=== PATIENT | female | born 1930 | race Caucasian/White ===

== ENCOUNTER 2018-05-13 17:53 | Emergency (ER) | payer OTHER ==
[~2018-05-13] VITALS: Ht 147.3 cm; Wt 61.2 kg
[~2018-05-13 17:53] MED LIST: BENZ100A PO; CARB200 PO; Constulose10 GM/15 M PO; LEVSOD137 PO; LOSHYD100 PO; NASACORT10.8 ML
== END 2018-05-13 20:00 | disposition home or self-care (01) ==
LOC: ER 17:53
DX: N64.52 Nipple discharge (principal); E03.9 Hypothyroidism, unspecified; I10 Essential (primary) hypertension; Z79.899 Other long term (current) drug therapy
CPT/HCPCS: 99283-25

== ENCOUNTER 2020-10-04 19:36 | Inpatient (IN) | payer OTHER ==
[~2020-10-04] VITALS: Ht 144.8 cm; Wt 61.2 kg
[2020-10-04 20:18] LABS: BASOPHILS ABSOLUTE AUTO 0.01 K/mm3 (0.00-0.23); BASOPHILS PERCENT AUTO 0 % (0-2); EOSINOPHILS PERCENT AUTO 0 % (0-6); Hematocrit 42.3 % (33.0-51.0); Hemoglobin 13.9 g/dL (11.5-16.0); IMMATURE GRAN ABSOLUTE AUTO 0.05 K/mm3 (0.00-0.10); IMMATURE GRAN PERCENT AUTO 0 % (0-1); LYMPHOCYTES ABSOLUTE AUTO 0.41 K/mm3 (0.84-5.20); LYMPHOCYTES PERCENT AUTO 3 % (21-46); MONOCYTES ABSOLUTE AUTO 0.32 K/mm3 (0.16-1.47); MONOCYTES PERCENT AUTO 3 % (4-13); Mean Corpuscular HGB 29.1 pg (26.0-34.0); Mean Corpuscular HGB Conc 32.9 g/dL (31.5-36.5); Mean Corpuscular Volume 89 fL (80-100); NEUTROPHILS ABSOLUTE AUTO 11.21 K/mm3 (1.96-9.15); NEUTROPHILS PERCENT AUTO 93 % (41-73); RDW Coefficient Variation 12.5 % (11.7-14.2); Red Blood Cell Count 4.78 M/mm3 (3.80-5.20)
[2020-10-04 20:19] LABS: Mean Platelet Volume 10.2 fL (9.1-12.4); Platelet Count 175 K/mm3 (150-400)
[2020-10-04 20:25] LABS: Alanine Aminotransfer (ALT/SGP 81 U/L (12-78); Albumin, Blood 4.1 g/dL (3.4-5.0); Albumin/Globulin Ratio 1.1 (0.8-1.8); Alk Phos 123 U/L (50-136); Anion Gap 6 mmol/L (6-16); Aspartate Aminotrans (AST/SGOT 57 U/L (12-37); Bilirubin, Total 0.8 mg/dL (0.1-1.0); Blood Urea Nitrogen 21 mg/dL (8-24); Bun/Creatinine Ratio 28.1 (12.0-20.0); CO2, Blood 29 mmol/L (21-32); Calcium, Blood 9.8 mg/dL (8.5-10.1); Chloride, Blood 103 mmol/L (98-108); Creatinine, Blood 0.75 mg/dL (0.40-1.00); Globulin, Blood 3.6 g/dL (2.2-4.0); Glomerular Filtration Rate >60 (60-); Glucose, Blood 192 mg/dL (70-99); Potassium, Blood 4.1 mmol/L (3.5-5.5); Sodium, Blood 138 mmol/L (136-145); Total Protein, Blood 7.7 g/dL (6.4-8.2)
[2020-10-04 20:54] LABS: Source, Urine Clean Catch
[2020-10-04 20:57] LABS: Appearance, Urine Clear (Clear); Bilirubin, Urine Neg (Neg); Blood, Urine 1+ (Neg); Color, Urine Yellow (P-Yellow); Glucose Qualitative, Urine 2+ (Neg); Ketones, Urine Neg (Neg); Leukocyte Esterase, Urine Neg (Neg); Nitrite, Urine Neg (Neg); Protein, Urine 2+ (Neg); Urobilinogen, Urine NORM (Normal)
[2020-10-04 21:12] LABS: Amorphous Mod (0-Heavy); Bacteria Not Seen /hpf; Red Blood Cells, Urine 0-2 /hpf (0-2); Squamous Epithelial Cells Not Seen /hpf (Few); White Blood Cells, Urine Not Seen /hpf (0-5)
[2020-10-04] MEDS ORDERED: LOSARTAN POTAS100 M1 PO (21:54)
[2020-10-04] MEDS ORDERED: HYDROCHLOROTH12.5 MG PO (21:54)
--- NOTE | 2020-10-05 00:45 | NUR ---
ADMISSION NOTE RECEIVED HAND OFF FROM Elo PERSAUD RN USING SBAR. TRANSPORTED TO ROOM 230 VIA STRETCHER. TRANSFERED TO BED WITH FULL STAFF ASSISSTANCE, TOLERATED WELL. LYING IN SEMI FOWLERS WITH EYES OPEN. AAO X4, ASHBY, FAC. ORIENTED TO ROOM, CALL SYSTEM, AND POC, VOICES UNDERSTANDING. STATES SHE HAD FALL TODAY AND HAD RIGHT SIDED PAIN SINCE. DENIES HITTING HER HEAD ON ANYTHING OR LOC. ABDOMEN TENDER WITH MILD SWELLING NOTED. REPORTS RUQ TENDERNESS, DENIES PAIN IN RLQ. BOWEL TONES NOTED IN ALL QUADS. RIGHT AC 18G SL PIV IS PATENT, FLUSHING WITH EASE, IVF AND ABX STARTED PER MD ORDERS. SCD'S APPLIED TO BLE, TOLERATING WELL. STATED SHE HAS CHRONIC BACK PAIN, GIVEN HEATING PAD FOR COMFORT. PT IS NPO, GIVEN ORAL CARE SUPPLIES FOR COMFORT. DENIES PAIN, DISCOMFORT, OR FURTHER NEEDS. SAFETY MEASURES IN PLACE. ADMISSION ASSESSMENT IN PROGRESS. WILL CONTINUE TO MONITOR.
[2020-10-05 04:19] LABS: BASOPHILS ABSOLUTE AUTO 0.02 K/mm3 (0.00-0.23); BASOPHILS PERCENT AUTO 0 % (0-2); EOSINOPHILS PERCENT AUTO 0 % (0-6); Hematocrit 38.2 % (33.0-51.0); Hemoglobin 12.4 g/dL (11.5-16.0); IMMATURE GRAN ABSOLUTE AUTO 0.04 K/mm3 (0.00-0.10); IMMATURE GRAN PERCENT AUTO 0 % (0-1); LYMPHOCYTES ABSOLUTE AUTO 0.75 K/mm3 (0.84-5.20); LYMPHOCYTES PERCENT AUTO 6 % (21-46); MONOCYTES ABSOLUTE AUTO 0.98 K/mm3 (0.16-1.47); MONOCYTES PERCENT AUTO 8 % (4-13); Mean Corpuscular HGB 28.8 pg (26.0-34.0); Mean Corpuscular HGB Conc 32.5 g/dL (31.5-36.5); Mean Corpuscular Volume 89 fL (80-100); Mean Platelet Volume 9.5 fL (9.1-12.4); NEUTROPHILS ABSOLUTE AUTO 10.28 K/mm3 (1.96-9.15); NEUTROPHILS PERCENT AUTO 85 % (41-73); Platelet Count 161 K/mm3 (150-400); RDW Coefficient Variation 12.6 % (11.7-14.2); RDW Standard Deviation 41.6 fL (35.1-46.3); Red Blood Cell Count 4.31 M/mm3 (3.80-5.20); White Blood Cell Count 12.07 K/mm3 (4.00-11.30)
[2020-10-05 04:38] LABS: Alanine Aminotransfer (ALT/SGP 95 U/L (12-78); Albumin, Blood 3.6 g/dL (3.4-5.0); Albumin/Globulin Ratio 1.2 (0.8-1.8); Alk Phos 107 U/L (50-136); Anion Gap 5 mmol/L (6-16); Aspartate Aminotrans (AST/SGOT 78 U/L (12-37); Bilirubin, Total 1.3 mg/dL (0.1-1.0); Blood Urea Nitrogen 19 mg/dL (8-24); Bun/Creatinine Ratio 28.5 (12.0-20.0); CO2, Blood 28 mmol/L (21-32); Calcium, Blood 9.6 mg/dL (8.5-10.1); Chloride, Blood 105 mmol/L (98-108); Creatinine, Blood 0.67 mg/dL (0.40-1.00); Globulin, Blood 2.9 g/dL (2.2-4.0); Glomerular Filtration Rate >60 (60-); Glucose, Blood 136 mg/dL (70-99); Potassium, Blood 3.7 mmol/L (3.5-5.5); Sodium, Blood 138 mmol/L (136-145); Total Protein, Blood 6.5 g/dL (6.4-8.2)
--- NOTE | 2020-10-05 05:57 | NUR ---
SHIFT SUMMARY LYING IN SUPINE PER PT PREFERENCE D/T CHRONIC BACK PAIN FROM SCOLIOSIS. HAS BEEN COOPERATIVE WITH CARE. MEDICATED FOR PAIN X1 THIS SHIFT PER MD ORDERS. NPO FOR POSSIBLE SURGERY TODAY. ABX INFUSED PER MD ORDERS. ENCOURAGED TO T/C/DB FOR COMFORT AND PREVENTION, VOICES UNDERSTANDING. SAFETY MEAURES IN PLACE. WILL CONTINUE TO MONITOR UNTIL HAND OFF TO ONCOMING SHIFT USING SBAR.
--- NOTE | 2020-10-05 12:39 | NUR ---
PT BACK TO ROOM FROM IMAGING. PT'S DAUGHTER, KAYE CALLED AND GIVEN AN UPDATE ON HER MOM'S PLAN OF CARE. AWAITING RESULTS OF MRI AT THIS TIME. CONTINUING TO MONITOR PT'S STATUS
--- NOTE | 2020-10-05 18:30 | NUR ---
SUMMARY: NO ACUTE CHANGE TODAY. A/O, VSS. PT MEDICATED PER EMAR FOR PAIN, PT COMPLAINS OF CHRONIC BACK/NECK PAIN MORE THAN ABD PAIN. PT HAS DENIED N/V. INDEP IN ROOM AND UP TO CHAIR FOR MOST OF THE DAY. PER DR. PITT PLAN IS FOR SURGERY TOMORROW, PT NPO AT 0000. WILL CTM AND REPORT TO NOC RN
[2020-10-06 04:37] LABS: BASOPHILS ABSOLUTE AUTO 0.02 K/mm3 (0.00-0.23); BASOPHILS PERCENT AUTO 0 % (0-2); EOSINOPHILS PERCENT AUTO 0 % (0-6); Hemoglobin 12.3 g/dL (11.5-16.0); IMMATURE GRAN ABSOLUTE AUTO 0.05 K/mm3 (0.00-0.10); IMMATURE GRAN PERCENT AUTO 0 % (0-1); LYMPHOCYTES ABSOLUTE AUTO 0.67 K/mm3 (0.84-5.20); LYMPHOCYTES PERCENT AUTO 5 % (21-46); MONOCYTES ABSOLUTE AUTO 1.05 K/mm3 (0.16-1.47); MONOCYTES PERCENT AUTO 8 % (4-13); Mean Corpuscular HGB 29.4 pg (26.0-34.0); Mean Corpuscular HGB Conc 32.4 g/dL (31.5-36.5); Mean Corpuscular Volume 91 fL (80-100); Mean Platelet Volume 9.9 fL (9.1-12.4); NEUTROPHILS ABSOLUTE AUTO 10.86 K/mm3 (1.96-9.15); NEUTROPHILS PERCENT AUTO 86 % (41-73); Platelet Count 143 K/mm3 (150-400); RDW Coefficient Variation 12.8 % (11.7-14.2); RDW Standard Deviation 42.7 fL (35.1-46.3); Red Blood Cell Count 4.19 M/mm3 (3.80-5.20); White Blood Cell Count 12.65 K/mm3 (4.00-11.30)
[2020-10-06 05:03] LABS: Alanine Aminotransfer (ALT/SGP 113 U/L (12-78); Albumin, Blood 3.2 g/dL (3.4-5.0); Albumin/Globulin Ratio 1.1 (0.8-1.8); Alk Phos 96 U/L (50-136); Anion Gap 6 mmol/L (6-16); Aspartate Aminotrans (AST/SGOT 87 U/L (12-37); Bilirubin, Total 2.4 mg/dL (0.1-1.0); Blood Urea Nitrogen 21 mg/dL (8-24); Bun/Creatinine Ratio 25.5 (12.0-20.0); CO2, Blood 26 mmol/L (21-32); Calcium, Blood 9.5 mg/dL (8.5-10.1); Chloride, Blood 111 mmol/L (98-108); Creatinine, Blood 0.83 mg/dL (0.40-1.00); Globulin, Blood 2.9 g/dL (2.2-4.0); Glomerular Filtration Rate >60 (60-); Glucose, Blood 100 mg/dL (70-99); Potassium, Blood 3.8 mmol/L (3.5-5.5); Sodium, Blood 143 mmol/L (136-145); Total Protein, Blood 6.1 g/dL (6.4-8.2)
[2020-10-06 06:49] LABS: Influenza A, PCR Negative (NEGATIVE); Influenza B, PCR Negative (NEGATIVE); Resp Syncytial Virus, PCR Negative (NEGATIVE); SARS-Cov-2 (COVID-19) PCR, MMC Negative (NEGATIVE)
--- NOTE | 2020-10-06 06:56 | NUR ---
SUMMARY PT NPO FOR POSSIBLE OR TODAY-HOWEVER, SEE LABS. PT REPORTS SUBLIMAZE 50 MCG EFFECTIVE FOR PAIN CONTROL.
--- NOTE | 2020-10-06 14:13 | NUR ---
assumed care of pt, received report from previous rn Carmen, pt sleeping in bed, bed in lowest position, bed rails up x 2
--- NOTE | 2020-10-06 16:57 | NUR ---
shift summary: vss, no acute changes. pt remains on bowel rest with parenteral fluids. liver enzymes monitored. per MD, "hopefully gall bladder" tomorrow. pt showered herself, is a/o x 4, standby assist with lines, has showered herself this shift, is pleasant/cooperative. Pt's son-in-law has visited this shift.
--- NOTE | 2020-10-07 04:58 | NUR ---
SHIFT SUMMARY PT IS A/O X4. IND UP TO BSC AND OCC SBA UP TO BATHROOM FOR CORDS/LINES. IV FLUIDS INFUSING OVERNIGHT. PAIN MANAGED WITH FENTANYL PER ORDERS. PT REPORTS THIS HAS BEEN MANAGING PAIN WELL. HAS BEEN NPO SINCE MIDNIGHT FOR POSSIBLE SURGERY TODAY. RESTING IN BED AT THIS TIME WITH CALL LIGHT IN REACH.
[2020-10-07 05:56] LABS: BASOPHILS ABSOLUTE AUTO 0.02 K/mm3 (0.00-0.23); BASOPHILS PERCENT AUTO 0 % (0-2); EOSINOPHILS ABSOLUTE AUTO 0.01 K/mm3 (0.00-0.68); EOSINOPHILS PERCENT AUTO 0 % (0-6); Hematocrit 33.9 % (33.0-51.0); Hemoglobin 10.8 g/dL (11.5-16.0); IMMATURE GRAN ABSOLUTE AUTO 0.03 K/mm3 (0.00-0.10); IMMATURE GRAN PERCENT AUTO 0 % (0-1); LYMPHOCYTES ABSOLUTE AUTO 0.73 K/mm3 (0.84-5.20); LYMPHOCYTES PERCENT AUTO 8 % (21-46); MONOCYTES ABSOLUTE AUTO 0.95 K/mm3 (0.16-1.47); MONOCYTES PERCENT AUTO 10 % (4-13); Mean Corpuscular HGB Conc 31.9 g/dL (31.5-36.5); Mean Corpuscular Volume 91 fL (80-100); NEUTROPHILS ABSOLUTE AUTO 7.48 K/mm3 (1.96-9.15); NEUTROPHILS PERCENT AUTO 81 % (41-73); Platelet Count 131 K/mm3 (150-400); RDW Coefficient Variation 13.1 % (11.7-14.2); RDW Standard Deviation 43.7 fL (35.1-46.3); Red Blood Cell Count 3.73 M/mm3 (3.80-5.20); White Blood Cell Count 9.22 K/mm3 (4.00-11.30)
[2020-10-07 06:19] LABS: Alanine Aminotransfer (ALT/SGP 76 U/L (12-78); Albumin, Blood 2.8 g/dL (3.4-5.0); Alk Phos 84 U/L (50-136); Anion Gap 7 mmol/L (6-16); Aspartate Aminotrans (AST/SGOT 48 U/L (12-37); Bilirubin, Total 1.3 mg/dL (0.1-1.0); Blood Urea Nitrogen 23 mg/dL (8-24); Bun/Creatinine Ratio 33.4 (12.0-20.0); CO2, Blood 23 mmol/L (21-32); Calcium, Blood 8.9 mg/dL (8.5-10.1); Chloride, Blood 116 mmol/L (98-108); Creatinine, Blood 0.69 mg/dL (0.40-1.00); Globulin, Blood 2.7 g/dL (2.2-4.0); Glomerular Filtration Rate >60 (60-); Glucose, Blood 87 mg/dL (70-99); Potassium, Blood 3.7 mmol/L (3.5-5.5); Sodium, Blood 146 mmol/L (136-145); Total Protein, Blood 5.5 g/dL (6.4-8.2)
--- NOTE | 2020-10-07 14:19 | NUR ---
HEARING AIDS AND GLASSES TO ROOM WITH PT TO ROOM 230
--- NOTE | 2020-10-07 15:46 | NUR ---
SHIFT SUMMARY PT A&OX4, VSS, 2LNC, S/P LAP JIGNA, 4 LAP SITES W/GAUZE CDI. PAIN MANAGED WITH 50 MCG FENT. ROBSON CL DIET. AWAITING POST OP VOID. SCDS/TEDS ON. WILL REPORT TO ONCOMING RN.
[2020-10-08 05:00] LABS: BASOPHILS ABSOLUTE AUTO 0.02 K/mm3 (0.00-0.23); BASOPHILS PERCENT AUTO 0 % (0-2); EOSINOPHILS PERCENT AUTO 0 % (0-6); Hematocrit 33.3 % (33.0-51.0); Hemoglobin 10.7 g/dL (11.5-16.0); IMMATURE GRAN ABSOLUTE AUTO 0.05 K/mm3 (0.00-0.10); IMMATURE GRAN PERCENT AUTO 1 % (0-1); LYMPHOCYTES ABSOLUTE AUTO 0.85 K/mm3 (0.84-5.20); LYMPHOCYTES PERCENT AUTO 9 % (21-46); MONOCYTES ABSOLUTE AUTO 1.05 K/mm3 (0.16-1.47); MONOCYTES PERCENT AUTO 11 % (4-13); Mean Corpuscular HGB 29.4 pg (26.0-34.0); Mean Corpuscular HGB Conc 32.1 g/dL (31.5-36.5); Mean Corpuscular Volume 92 fL (80-100); Mean Platelet Volume 10.7 fL (9.1-12.4); NEUTROPHILS ABSOLUTE AUTO 7.56 K/mm3 (1.96-9.15); NEUTROPHILS PERCENT AUTO 79 % (41-73); Platelet Count 131 K/mm3 (150-400); RDW Coefficient Variation 13.2 % (11.7-14.2); RDW Standard Deviation 44.9 fL (35.1-46.3); Red Blood Cell Count 3.64 M/mm3 (3.80-5.20); White Blood Cell Count 9.53 K/mm3 (4.00-11.30)
[2020-10-08 05:20] LABS: Alanine Aminotransfer (ALT/SGP 146 U/L (12-78); Albumin, Blood 2.8 g/dL (3.4-5.0); Albumin/Globulin Ratio 1.1 (0.8-1.8); Alk Phos 199 U/L (50-136); Anion Gap 4 mmol/L (6-16); Aspartate Aminotrans (AST/SGOT 183 U/L (12-37); Bilirubin, Total 1.7 mg/dL (0.1-1.0); Blood Urea Nitrogen 20 mg/dL (8-24); Bun/Creatinine Ratio 26.8 (12.0-20.0); CO2, Blood 26 mmol/L (21-32); Calcium, Blood 8.9 mg/dL (8.5-10.1); Chloride, Blood 111 mmol/L (98-108); Creatinine, Blood 0.75 mg/dL (0.40-1.00); Globulin, Blood 2.6 g/dL (2.2-4.0); Glomerular Filtration Rate >60 (60-); Glucose, Blood 145 mg/dL (70-99); Potassium, Blood 3.7 mmol/L (3.5-5.5); Sodium, Blood 141 mmol/L (136-145); Total Protein, Blood 5.4 g/dL (6.4-8.2)
--- NOTE | 2020-10-08 05:54 | NUR ---
SHIFT SUMMARY PT IS A/O X4 AND IND IN ROOM. S/P LAP JIGNA ON 10/07. TOLERATING CLEAR LIQUID DIET W/O NAUSEA. PT HAS REPORTED SOME PAIN BUT ONLY REQUESTED FENTANYL ONCE AND HAS DECLINED WHEN OFFERD AGAIN THROUGHOUT THE SHIFT. PT DENIES PASSING FLATUS OVERNIGHT. SHE HAS BEEN AMBULATING MULT TIMES TO BATHROOM AND HAS BEEN UP TO RECLINER CHAIR. USING HEAT PACK FOR COMFORT ON ABDOMEN. IV FLUIDS INFUSING OVERNIGHT PER ORDERS. PT RESTING AT THIS TIME WITH CALL LIGHT IN REACH.
--- NOTE | 2020-10-08 16:36 | NUR ---
SHIFT SUMMARY PT A&OX4, VSS/RA, POD1 LAP JIGNA, 4 LAP SITES/GAUZE CDI, ABD BINDER ON. PAIN MANAGED WITH 5 MG NORCO. ROBSON CL DIET, REPORTS FLATUS, DENIES BM, VOIDING WELL. AMBULATING SBA IN ROOM, TO BRP, IN HALLWAY, UP TO CHAIR T/O SHIFT. SCDS/TEDS ON. I.S. AND DEEP BREATHING EDU & ENC, PT DEMONSTRATED. WILL REPORT TO ONCOMING NOC RN.
[2020-10-09 05:08] LABS: BASOPHILS ABSOLUTE AUTO 0.02 K/mm3 (0.00-0.23); BASOPHILS PERCENT AUTO 0 % (0-2); EOSINOPHILS ABSOLUTE AUTO 0.15 K/mm3 (0.00-0.68); EOSINOPHILS PERCENT AUTO 2 % (0-6); Hemoglobin 11.6 g/dL (11.5-16.0); IMMATURE GRAN ABSOLUTE AUTO 0.05 K/mm3 (0.00-0.10); IMMATURE GRAN PERCENT AUTO 1 % (0-1); LYMPHOCYTES ABSOLUTE AUTO 1.13 K/mm3 (0.84-5.20); LYMPHOCYTES PERCENT AUTO 14 % (21-46); MONOCYTES ABSOLUTE AUTO 1.03 K/mm3 (0.16-1.47); MONOCYTES PERCENT AUTO 13 % (4-13); Mean Corpuscular HGB 28.9 pg (26.0-34.0); Mean Corpuscular HGB Conc 32.2 g/dL (31.5-36.5); Mean Corpuscular Volume 90 fL (80-100); Mean Platelet Volume 10.5 fL (9.1-12.4); NEUTROPHILS ABSOLUTE AUTO 5.77 K/mm3 (1.96-9.15); NEUTROPHILS PERCENT AUTO 71 % (41-73); Platelet Count 128 K/mm3 (150-400); RDW Coefficient Variation 13.2 % (11.7-14.2); RDW Standard Deviation 43.5 fL (35.1-46.3); Red Blood Cell Count 4.02 M/mm3 (3.80-5.20); White Blood Cell Count 8.15 K/mm3 (4.00-11.30)
[2020-10-09 05:34] LABS: Alanine Aminotransfer (ALT/SGP 102 U/L (12-78); Albumin, Blood 2.5 g/dL (3.4-5.0); Albumin/Globulin Ratio 0.9 (0.8-1.8); Alk Phos 167 U/L (50-136); Anion Gap 6 mmol/L (6-16); Aspartate Aminotrans (AST/SGOT 49 U/L (12-37); Blood Urea Nitrogen 10 mg/dL (8-24); Bun/Creatinine Ratio 15.4 (12.0-20.0); CO2, Blood 23 mmol/L (21-32); Calcium, Blood 8.4 mg/dL (8.5-10.1); Chloride, Blood 110 mmol/L (98-108); Creatinine, Blood 0.65 mg/dL (0.40-1.00); Globulin, Blood 2.8 g/dL (2.2-4.0); Glomerular Filtration Rate >60 (60-); Glucose, Blood 128 mg/dL (70-99); Potassium, Blood 3.3 mmol/L (3.5-5.5); Sodium, Blood 139 mmol/L (136-145); Total Protein, Blood 5.3 g/dL (6.4-8.2)
--- NOTE | 2020-10-09 05:40 | NUR ---
SHIFT SUMMARY PT IS A/O X4, IND IN ROOM. AMBULATING, TOLERATING CLEAR LIQUIDS, AND VOIDING. REPORTS PASSING FLATUS, DENIES BM THIS SHIFT. PAIN MANAGED WITH NORCO X1 PER ORDERS. IV FLUIDS INFUSING OVERNIGHT PER ORDERS. NO ACUTE CHANGES THIS SHIFT. PT RESTING IN CHAIR WITH CALL LIGHT IN REACH.
[2020-10-09] MEDS ORDERED: HYDR1TAB94 PO (14:17)
--- NOTE | 2020-10-09 15:18 | NUR ---
10/09/20 1518 TIMMIRNA JOEL PT RECEIVED SCHEDULED DOSE OF FLAGYL 500MG IV AT 0800, ASKED DR PITT IF HE WOULD LIKE ANOTHER ANTIBIOTIC GIVEN TO PT PRIOR TO PROCEDURE.
--- NOTE | 2020-10-09 16:01 | NUR ---
DISCHARGED DC'D IV, CATHETER INTACT. REVIEWED DC PAPERWORK W/PT; VERBALIZED UNDERSTANDING. PT LEFT UNIT IN WC, ACCOMPANIED BY DAUGHTER, TO RIDE AWAITING OUTSIDE. HAD POSSESSIONS AND DC PAPERWORK IN HAND.
== END 2020-10-09 15:48 | disposition home or self-care (01) | DRG 417 ==
LOC: ER 19:36 → SURS 10-05 00:14
PROVIDERS: Emergency Medicine; Family Medicine; Internal Medicine Gastroenterology; Surgery; ADMIT Internal Medicine
PROC: 0FB13ZX Excision of Right Lobe Liver, Percutaneous Approach, Diagnostic (ICD-10-PCS; 2020-10-07)
PROC: 0FT44ZZ Resection of Gallbladder, Percutaneous Endoscopic Approach (ICD-10-PCS; principal; 2020-10-07 10:00)
PROC: BF03YZZ Plain Radiography of Gallbladder and Bile Ducts using Other Contrast (ICD-10-PCS; 2020-10-07 10:00)
DX: K80.00 Calculus of gallbladder with acute cholecystitis without obstruction (principal); K85.10 Biliary acute pancreatitis without necrosis or infection; E87.6 Hypokalemia; R74.01 Elevation of levels of liver transaminase levels; G40.909 Epilepsy, unspecified, not intractable, without status epilepticus; I10 Essential (primary) hypertension; M41.9 Scoliosis, unspecified; Z20.822 Contact with and (suspected) exposure to COVID-19; E89.0 Postprocedural hypothyroidism; K76.9 Liver disease, unspecified
CPT/HCPCS: 0241U; 36415; 36416; 74177; 74181; 74300; 76705; 80053; 81001; 83690; 83880; 85025; 88304; 88307; 93005; 93010; 96374-59; 96375-59; 99285-25; A9270; C1729; J0696; J1100; J1610; J2270; J2405; J2704; J2710; J3010; J7030; P9612; Q9967